=== PATIENT | female | born 1955 | race Caucasian/White ===

== ENCOUNTER 2024-11-28 21:55 | Emergency (ER) | payer MEDICARE, MEDICAID ==
[~2024-11-28] VITALS: Ht 167.6 cm; Wt 85.5 kg
[2024-11-29 00:25] VITALS: TEMP 98.4
[2024-11-29 00:38] VITALS: BP 156/84
[2024-11-29] MEDS ORDERED: PERC5TAB12 PO (02:39)
[2024-11-29 02:40] VITALS: O2SAT 97
[2024-11-29] MEDS: OXYCODONE/APAP 5MG/325MG(HOME DOSE PACK) PO ONE (02:45)
== END 2024-11-29 02:30 | disposition home or self-care (01) ==
LOC: M ED 21:55
DX: S82.141A Displaced bicondylar fracture of right tibia, initial encounter for closed fracture (principal); W01.0XXA Fall on same level from slipping, tripping and stumbling without subsequent striking against object, initial encounter; Y92.009 Unspecified place in unspecified non-institutional (private) residence as the place of occurrence of the external cause; Y93.9 Activity, unspecified; Y99.9 Unspecified external cause status; I10 Essential (primary) hypertension; E03.9 Hypothyroidism, unspecified